=== PATIENT | male | born 2000 | race Caucasian/White ===

== ENCOUNTER 2022-06-28 09:31 | Day surgery (SDC) | payer BC ==
[2022-06-27 13:18] VITALS: BMI 21.8
[2022-06-28] MEDS ORDERED: Oxymetazoline HCl 0.05% (30 ML BOT) ONE ×2 (09:35→10:09)
[2022-06-28] MEDS ORDERED: Lidocaine 1% (PF) 30 ML VIAL ONE (10:09)
[2022-06-28] MEDS ORDERED: EPINEPHrine 1 MG/ML AMP ONE (10:09)
[2022-06-28] MEDS ORDERED: Bacitracin Zinc Ointment 30 gm TUBE ONE (10:09)
[2022-06-28] MEDS ORDERED: fentaNYL PF 100 MCG/2 ML SYRINGE ONE (10:15)
[2022-06-28] MEDS ORDERED: Midazolam HCl 2 mg/2 ml Vial ONE (10:15)
[2022-06-28] MEDS ORDERED: Lidocaine 4% Topical Sol 50 ML BOT ONE (10:15)
[2022-06-28] MEDS ORDERED: Dexamethasone 20 MG/5 ML VIAL ONE (10:25)
[2022-06-28] MEDS ORDERED: PROPOFOL 200 MG/20 ML VIAL ONE (10:25)
[2022-06-28] MEDS ORDERED: Ondansetron PF 4 MG/2 ML Vial ONE (10:25)
== END 2022-06-28 13:15 | disposition home or self-care (01) ==
LOC: SDC 09:31
PROVIDERS: ATTEND Otolaryngology Plastic Surgery within the Head & Neck
PROC: 0NSB34Z Reposition Nasal Bone with Internal Fixation Device, Percutaneous Approach (ICD-10-PCS; principal; 2022-06-28)
PROC: 095L0ZZ Destruction of Nasal Turbinate, Open Approach (ICD-10-PCS; principal; 2022-06-28)
PROC: 09SM0ZZ Reposition Nasal Septum, Open Approach (ICD-10-PCS; principal; 2022-06-28)
DX: J34.2 Deviated nasal septum (principal); J34.3 Hypertrophy of nasal turbinates; S02.2XXA Fracture of nasal bones, initial encounter for closed fracture; J34.89 Other specified disorders of nose and nasal sinuses; W50.0XXA Accidental hit or strike by another person, initial encounter; Y93.62 Activity, american flag or touch football
CPT/HCPCS: J0171; J1100; J2001; J2250; J2405; J2704